=== PATIENT | female | born 1935 | race Caucasian/White ===

== ENCOUNTER 2017-11-23 07:48 | Outpatient (CLI) | payer OTHER ==
[~2017-11-23 07:48] MED LIST: ATENOLOL100 MG; BRONCOTRON LIQ118 ML PO; CATAPRES0.2 MG; CIPRO500 MG PO; COZAAR100 MG; FLAGYL500MG PO; GILTUSS LIQUID237 M1 PO; LOPRESSOR25 MG; LOPRESSOR25 MG PO; LOSARTAN POTAS100 MG PO; PROBIOTIC ACID1 EAC2 PO
== END 2017-11-23 07:55 | disposition home or self-care (01) ==
LOC: TOM 07:48
DX: I63.341 Cerebral infarction due to thrombosis of right cerebellar artery (principal)

== ENCOUNTER → 2018-04-22 | Emergency (ER) | payer OTHER ==
[~2018-04-22] VITALS: Ht 160 cm; Wt 68.0 kg
[~2018-04-22] MED LIST changes: +CRESTOR20 MG; +PROCARDIA XL90 MG
== END | disposition home or self-care (01) ==
LOC: ER 15:17 → CPU-OBS 15:21
DX: R07.89 Other chest pain (principal)

== ENCOUNTER 2018-08-09 10:20 | Outpatient (CLI) | payer OTHER | END 2018-08-09 10:27 | disposition home or self-care (01) | LOC: RAD 10:20 | DX: J45.998 Other asthma (principal) ==

== ENCOUNTER 2018-08-26 18:05 | Emergency (ER) | payer OTHER ==
[~2018-08-26] VITALS: Ht 160 cm; Wt 68.5 kg
== END 2018-08-26 20:43 | disposition home or self-care (01) ==
LOC: ER 18:05
DX: R20.0 Anesthesia of skin (principal)

== ENCOUNTER 2018-09-20 08:15 | Outpatient (CLI) | payer OTHER | END 2018-09-20 08:22 | disposition home or self-care (01) | LOC: MRI 08:15 | DX: I63.89 Other cerebral infarction (principal) | CPT/HCPCS: 70553; A9579 ==

== ENCOUNTER 2018-09-20 09:10 | Outpatient (CLI) | payer OTHER | END 2018-09-20 09:17 | disposition home or self-care (01) | LOC: NUCLEAR 09:10 | DX: I67.89 Other cerebrovascular disease (principal) ==

== ENCOUNTER 2020-06-04 12:15 | Outpatient (CLI) | payer OTHER | END 2020-06-04 12:17 | disposition home or self-care (01) | LOC: RAD 12:15 | PROVIDERS: ATTEND Specialist | DX: M17.0 Bilateral primary osteoarthritis of knee (principal) ==

== ENCOUNTER 2021-03-03 12:38 | Outpatient (CLI) | payer OTHER | END 2021-03-03 12:45 | disposition home or self-care (01) | LOC: RAD 12:38 | PROVIDERS: ATTEND Specialist | DX: J45.998 Other asthma (principal) ==

== ENCOUNTER 2021-12-24 10:49 | Outpatient (CLI) | payer OTHER | END 2021-12-24 10:59 | disposition home or self-care (01) | LOC: RAD 10:49 | PROVIDERS: ATTEND Specialist | DX: J45.998 Other asthma (principal) ==

== ENCOUNTER 2022-01-16 16:02 | Emergency (ER) | payer OTHER ==
[~2022-01-16] VITALS: Ht 160 cm; Wt 68.0 kg
== END 2022-01-16 19:10 | disposition home or self-care (01) ==
LOC: ER 16:02
DX: M54.2 Cervicalgia (principal)

== ENCOUNTER 2023-01-24 13:10 | Outpatient (CLI) | payer OTHER | END 2023-01-24 13:16 | disposition home or self-care (01) | LOC: RAD 13:10 | PROVIDERS: ATTEND Specialist | DX: J45.991 Cough variant asthma (principal) ==

== ENCOUNTER 2023-02-10 11:52 | Outpatient (CLI) | payer OTHER | END 2023-02-10 11:56 | disposition home or self-care (01) | LOC: RAD 11:52 | PROVIDERS: ATTEND Physical Medicine & Rehabilitation | DX: M54.2 Cervicalgia (principal) ==

== ENCOUNTER 2023-08-27 13:40 | Emergency (ER) | payer OTHER ==
[~2023-08-27] VITALS: Ht 160 cm; Wt 49.9 kg
== END 2023-08-27 18:20 | disposition home or self-care (01) ==
LOC: ER 13:40
DX: M54.2 Cervicalgia (principal)
CPT/HCPCS: 72040; 96372; 99283; J1885

== ENCOUNTER 2023-10-31 13:55 | Outpatient (CLI) | payer OTHER | END 2023-10-31 14:10 | disposition home or self-care (01) | LOC: MRI 13:55 | PROVIDERS: ATTEND Neuromusculoskeletal Medicine & OMM | DX: I72.9 Aneurysm of unspecified site (principal); I65.1 Occlusion and stenosis of basilar artery; I65.09 Occlusion and stenosis of unspecified vertebral artery; I65.29 Occlusion and stenosis of unspecified carotid artery; Q28.2 Arteriovenous malformation of cerebral vessels | CPT/HCPCS: 70544 ==

== ENCOUNTER 2023-11-22 09:44 | Outpatient (CLI) | payer OTHER | END 2023-11-22 09:54 | disposition home or self-care (01) | LOC: MRI 09:44 | PROVIDERS: ATTEND Neuromusculoskeletal Medicine & OMM | DX: F09 Unspecified mental disorder due to known physiological condition (principal); F03.90 Unspecified dementia, unspecified severity, without behavioral disturbance, psychotic disturbance, mood disturbance, and anxiety | CPT/HCPCS: 70551 ==

== ENCOUNTER 2024-01-12 09:09 | Outpatient (CLI) | payer OTHER | END 2024-01-12 09:14 | disposition home or self-care (01) | LOC: RAD 09:09 | PROVIDERS: ATTEND Specialist | DX: J45.998 Other asthma (principal) ==

== ENCOUNTER 2024-09-30 19:25 | Emergency (ER) | payer OTHER ==
[~2024-09-30] VITALS: Ht 160 cm; Wt 61.2 kg
[2024-09-30] MEDS ORDERED: TRAZODONE HCL150 MG (19:43)
[2024-09-30] MEDS ORDERED: EXELON1 EACH (19:43)
[2024-09-30] MEDS ORDERED: GEODON20 MG (19:43)
[2024-09-30] MEDS ORDERED: hydrOXYzine PAMOATE 25 MG CAPSULE PO ONE (20:30)
[2024-09-30 20:55] LABS: HEMATOCRIT 33.6 % (36.0-45.00); HEMOGLOBIN 11.9 g/dL (12.0-15.00); MEAN CELL VOLUME 84.2 fL (80.00-100.00); MEAN CORPUSCULAR HEMOGLOBIN 29.8 pg (27.00-32.0); MEAN CORPUSCULAR HGB CONC 35.4 g/dl (32.0-36.0); PLATELET COUNT 340 K/uL (150-450); RED BLOOD COUNT 3.99 M/uL (4.00-6.00); RED CELL DISTRIBUTION WIDTH 14.9 % (11.5-14.5)
[2024-09-30 21:33] LABS: ALBUMIN 3.4 gm/dL (3.4-5.0); BILIRUBIN TOTAL 0.27 mg/dL (0.3-1.2); CALCIUM 9.5 mg/dL (8.5-10.1); CREATININE SERUM 1.07 mg/dL (0.55-1.02); GFR 48.39; GLOBULINA 3.7 G/DL (2.4-3.5); POTASSIUM 3.14 mEq/L (3.5-5.1); TOTAL PROTEIN 7.1 gm/dL (6.4-8.2)
[2024-09-30] MEDS ORDERED: LORazepam 0.5 MG TABLET PO ONE (23:15)
[2024-10-01] MEDS ORDERED: ZIPRASIDONE HCL20 MG PO (13:37)
[2024-10-01] MEDS ORDERED: RIVASTIGMINE1 EAC1 TD (13:38)
[2024-10-01] MEDS ORDERED: CRESTOR40 MG PO (13:38)
[2024-10-01] MEDS ORDERED: MEGESTROL ACETA40 MG PO (13:38)
[2024-10-01] MEDS ORDERED: TOPROL XL100 M1 (13:38)
== END 2024-09-30 23:21 | disposition home or self-care (01) ==
LOC: ER 19:25
PROVIDERS: General Practice
DX: S00.11XA Contusion of right eyelid and periocular area, initial encounter (principal); W18.39XA Other fall on same level, initial encounter; Y93.89 Activity, other specified; Y92.018 Other place in single-family (private) house as the place of occurrence of the external cause; G30.8 Other Alzheimer's disease; F02.80 Dementia in other diseases classified elsewhere, unspecified severity, without behavioral disturbance, psychotic disturbance, mood disturbance, and anxiety; I10 Essential (primary) hypertension; E11.9 Type 2 diabetes mellitus without complications

== ENCOUNTER 2024-10-01 13:35 | Inpatient (IN) | payer OTHER ==
[~2024-10-01] VITALS: Ht 167.6 cm; Wt 65.3 kg
[~2024-10-01 13:35] MED LIST changes: +EXELON1 EACH; +GEODON20 MG; +TRAZODONE HCL150 MG
[2024-10-01] MEDS ORDERED: ZIPRASIDONE HCL20 MG PO (13:37)
[2024-10-01] MEDS ORDERED: TOPROL XL100 M1 (13:38)
[2024-10-01] MEDS ORDERED: RIVASTIGMINE1 EAC1 TD (13:38)
[2024-10-01] MEDS ORDERED: MEGESTROL ACETA40 MG PO (13:38)
[2024-10-01] MEDS ORDERED: CRESTOR40 MG PO (13:38)
[2024-10-01] MEDS ORDERED: FAMOtidine 10 MG/ML (4ML VIAL) IV STA (15:35)
[2024-10-01 16:10] LABS: HEMATOCRIT 34.9 % (36.0-45.00); HEMOGLOBIN 12.1 g/dL (12.0-15.00); MEAN CELL VOLUME 85.4 fL (80.00-100.00); MEAN CORPUSCULAR HEMOGLOBIN 29.5 pg (27.00-32.0); MEAN CORPUSCULAR HGB CONC 34.6 g/dl (32.0-36.0); PLATELET COUNT 349 K/uL (150-450); RED BLOOD COUNT 4.09 M/uL (4.00-6.00); RED CELL DISTRIBUTION WIDTH 14.9 % (11.5-14.5)
[2024-10-01 16:18] LABS: PH,URINE 6.5 (5.0-8.0); URINE APPEARANCE Clear; URINE BILIRRUBIN Negative (NEGATIVE); URINE BLOOD Moderate; URINE COLOR Yellow; URINE GLUCOSE Negative (NEGATIVE); URINE KETONE Negative (NEGATIVE); URINE LEUKOCYTE Negative; URINE NITRATE Negative
[2024-10-01 16:23] LABS: URINE BACTERIA 96.9 uL (0.0-1933); URINE EPITHELIAL CELLS 19.1 uL (0.0-38.8); URINE RBC 20.4 uL (0.0-20.8); URINE WBC 13.9 uL (0.0-23.2)
[2024-10-01 16:38] LABS: ALBUMIN 3.6 gm/dL (3.4-5.0); BILIRUBIN TOTAL 0.38 mg/dL (0.3-1.2); BILIRUBIN,CONJUGATED 0.13 mg/dL (0.0-0.2); BILIRUBIN,UNCONJUGATED 0.25 mg/dL (0.0-0.6); CALCIUM 9.1 mg/dL (8.5-10.1); CREATININE SERUM 0.99 mg/dL (0.55-1.02); GFR 52.93; TOTAL PROTEIN 7.5 gm/dL (6.4-8.2)
[2024-10-01 16:46] LABS: POTASSIUM 2.93 mEq/L (3.5-5.1)
[2024-10-01 16:52] LABS: URINE CAST 1.06 uL (0.0-1.40); URINE PROTEIN 100 (NEGATIVE)
[2024-10-01] MEDS ORDERED: POTASSIUM CHLORIDE/D5-0.9%NACL 40 MEQ/1,000 ML PIGGYBAG IV STA (16:58)
[2024-10-01] MEDS ORDERED: RIVAROXABAN 20 MG TABLET PO STA (16:59)
[2024-10-01] MEDS ORDERED: ACETAMINOPHEN 500 MG GEL..CAP PO PRN (20:00)
[2024-10-01] MEDS ORDERED: 0.9 % SODIUM CHLORIDE 1,000 ML IV SCH (20:00)
[2024-10-01] MEDS ORDERED: POLYETHYLENE GLYCOL 3350 17 GM BLIST.PACK PO ONE (20:15)
[2024-10-01] MEDS ORDERED: TEMAZEPAM 15 MG CAPSULE PO SCH (21:00)
[2024-10-01 22:18] LABS: INR 1.16; PARTIAL THROMBOPLASTIN TIME 32.2 SECONDS (22.0-34.0); PROTHROMBIN TIME 12.5 SECONDS (9.0-11.5)
[2024-10-01 22:20] LABS: MAGNESIUM 2.4 mg/dL (1.8-2.4); PHOSPHOROUS 2.3 mg/dL (2.5-4.9)
[2024-10-01 22:57] VITALS: BP 150/77; O2SAT 97
[2024-10-02 01:10] VITALS: O2SAT 97
[2024-10-02 01:59] VITALS: BP 136/79; O2SAT 95
[2024-10-02 05:45] VITALS: O2SAT 98
[2024-10-02 08:01] VITALS: BP 118/88; O2SAT 97
[2024-10-02] MEDS ORDERED: ASPIRIN 81 MG TAB.CHEW PO SCH (09:00)
[2024-10-02] MEDS ORDERED: METOPROLOL SUCCINATE 100 MG TAB.SR.24H PO SCH (09:00)
[2024-10-02] MEDS ORDERED: ATORVASTATIN CALCIUM 40 MG TABLET PO SCH (09:00)
[2024-10-02] MEDS ORDERED: MEGESTROL ACETATE 40 MG TABLET PO SCH (09:00)
[2024-10-02] MEDS ORDERED: FAMOTIDINE/PF 20 MG in 0.9 % SODIUM CHLORIDE 8 ML IV PUSH SCH (09:00)
[2024-10-02 09:37] VITALS: O2SAT 97
[2024-10-02 14:26] VITALS: O2SAT 98
[2024-10-02] MEDS ORDERED: LORazepam 2 MG/ML VIAL IV PUSH PRN (16:30)
[2024-10-02] MEDS ORDERED: VITAMIN B COMPLEX/LYSINE 1 ML ML PO SCH (17:00)
[2024-10-02] MEDS ORDERED: HALOPERIDOL LACTATE 5 MG/ML AMPUL IM PRN (18:00)
[2024-10-03 02:54] VITALS: BP 128/66
[2024-10-03 08:59] VITALS: BP 140/90
[2024-10-03] MEDS ORDERED: MEGESTROL ACETATE 40 MG TABLET PO SCH (12:16)
[2024-10-03] MEDS ORDERED: PATIENTS OWN MEDICATION (MEDICAMENTO EN PISO) PO SCH (17:00)
[2024-10-03 17:47] VITALS: BP 151/71
[2024-10-03 22:00] VITALS: O2SAT 99
[2024-10-03 22:02] LABS: ALBUMIN 3.4 gm/dL (3.4-5.0); BILIRUBIN TOTAL 0.45 mg/dL (0.3-1.2); CALCIUM 8.9 mg/dL (8.5-10.1); CREATININE SERUM 0.65 mg/dL (0.55-1.02); GFR 86.02; GLOBULINA 3.4 G/DL (2.4-3.5); MAGNESIUM 2.3 mg/dL (1.8-2.4); POTASSIUM 3.67 mEq/L (3.5-5.1); TOTAL PROTEIN 6.8 gm/dL (6.4-8.2)
[2024-10-04] VITALS (7 sets, daily range): BP systolic 140–170; BP diastolic 74–80; O2SAT 87–99
[2024-10-04] MEDS ORDERED: PATIENTS OWN MEDICATION (MEDICAMENTO EN PISO) TOP SCH (09:00)
[2024-10-04 09:33] LABS: ALBUMIN 3.1 gm/dL (3.4-5.0); BILIRUBIN TOTAL 0.5 mg/dL (0.3-1.2); CALCIUM 8.7 mg/dL (8.5-10.1); CREATININE SERUM 0.78 mg/dL (0.55-1.02); GFR 69.7; GLOBULINA 2.9 G/DL (2.4-3.5); MAGNESIUM 2.3 mg/dL (1.8-2.4); POTASSIUM 3.19 mEq/L (3.5-5.1)
[2024-10-04] MEDS ORDERED: POTASSIUM CHLORIDE 20MEQ/100ML H2O PB IV NR (11:00)
== END 2024-10-04 21:23 | disposition home or self-care (01) | DRG 64 ==
LOC: ER 13:35 → MEDI 20:17
PROVIDERS: General Practice; ADMIT Specialist; ATTEND Specialist
PROC: BW21ZZZ Computerized Tomography (CT Scan) of Abdomen and Pelvis (ICD-10-PCS; 2024-10-01)
PROC: BW38ZZZ Magnetic Resonance Imaging (MRI) of Head (ICD-10-PCS; 2024-10-01)
PROC: B24BZZZ Ultrasonography of Heart with Aorta (ICD-10-PCS; 2024-10-01)
PROC: B348ZZZ Ultrasonography of Bilateral Internal Carotid Arteries (ICD-10-PCS; 2024-10-01)
PROC: 4A12X4Z Monitoring of Cardiac Electrical Activity, External Approach (ICD-10-PCS; principal; 2024-10-02)
DX: I63.9 Cerebral infarction, unspecified (principal); G93.41 Metabolic encephalopathy; E87.6 Hypokalemia; E78.5 Hyperlipidemia, unspecified; G30.9 Alzheimer's disease, unspecified; F02.80 Dementia in other diseases classified elsewhere, unspecified severity, without behavioral disturbance, psychotic disturbance, mood disturbance, and anxiety; S00.93XA Contusion of unspecified part of head, initial encounter; W19.XXXA Unspecified fall, initial encounter; Y93.9 Activity, unspecified; Y92.9 Unspecified place or not applicable
CPT/HCPCS: 70544

== ENCOUNTER 2025-02-15 12:25 | Emergency (ER) | payer OTHER ==
[~2025-02-15] VITALS: Ht 167.6 cm; Wt 68.0 kg
[~2025-02-15 12:25] MED LIST changes: +CRESTOR40 MG PO; +MEGESTROL ACETA40 MG PO; +RIVASTIGMINE1 EAC1 TD; +TOPROL XL100 M1; +ZIPRASIDONE HCL20 MG PO
[2025-02-15] MEDS ORDERED: LIDOCAINE HCL 1% 10ML VIAL IJ ONE (12:45)
[2025-02-15 13:56] LABS: HEMATOCRIT 32.8 % (36.0-45.00); MEAN CELL VOLUME 88.3 fL (80.00-100.00); MEAN CORPUSCULAR HEMOGLOBIN 29.6 pg (27.00-32.0); MEAN CORPUSCULAR HGB CONC 33.5 g/dl (32.0-36.0); PLATELET COUNT 300 K/uL (150-450); RED BLOOD COUNT 3.72 M/uL (4.00-6.00); RED CELL DISTRIBUTION WIDTH 14.3 % (11.5-14.5)
[2025-02-15 14:12] LABS: CALCIUM 8.7 mg/dL (8.5-10.1); CREATININE SERUM 0.52 mg/dL (0.55-1.02); GFR 111.29; POTASSIUM 3.5 mEq/L (3.5-5.1)
[2025-02-15] MEDS ORDERED: TETANUS & DIPHTHERIA TOX,ADULT 0.5 ML VIAL IM ONE (15:30)
[2025-02-15] MEDS ORDERED: LIDOCAINE HCL 1% 10ML VIAL ONE (15:33)
[2025-02-15] MEDS ORDERED: DIPHTH,PERTUSS(ACELL),TET VAC 0.5 ML SYRINGE IM ONE (15:35)
[2025-02-15] MEDS ORDERED: POVIDONE-IODINE 118 ML BOTT TOP ONE (15:39)
[2025-02-15] MEDS ORDERED: HYDROGEN PEROXIDE 473 ML BOTTLE TOP ONE (15:39)
== END 2025-02-15 17:58 | disposition home or self-care (01) ==
LOC: ER 12:25
PROVIDERS: General Practice
DX: S01.81XA Laceration without foreign body of other part of head, initial encounter (principal); W19.XXXA Unspecified fall, initial encounter; Y93.89 Activity, other specified; Y92.89 Other specified places as the place of occurrence of the external cause; Y99.8 Other external cause status
CPT/HCPCS: 12002; 36415; 70450; 72125; 90471; 90714; 96372; 99284; J1670; J3490

== ENCOUNTER 2025-03-03 12:07 | Emergency (ER) | payer OTHER ==
[~2025-03-03] VITALS: Ht 165.1 cm; Wt 68.0 kg
[2025-03-03] MEDS ORDERED: 0.9 % SODIUM CHLORIDE 1,000 ML IV SCH (12:30)
[2025-03-03 14:26] LABS: HEMATOCRIT 36.5 % (36.0-45.00); HEMOGLOBIN 12.3 g/dL (12.0-15.00); MEAN CELL VOLUME 86.7 fL (80.00-100.00); MEAN CORPUSCULAR HEMOGLOBIN 29.1 pg (27.00-32.0); MEAN CORPUSCULAR HGB CONC 33.6 g/dl (32.0-36.0); PLATELET COUNT 318 K/uL (150-450); RED BLOOD COUNT 4.22 M/uL (4.00-6.00); RED CELL DISTRIBUTION WIDTH 14.3 % (11.5-14.5)
[2025-03-03 14:35] LABS: CALCIUM 8.9 mg/dL (8.5-10.1); CREATININE SERUM 0.58 mg/dL (0.55-1.02); GFR 98.11; POTASSIUM 3.46 mEq/L (3.5-5.1)
[2025-03-03 15:07] LABS: PARTIAL THROMBOPLASTIN TIME 28.3 SECONDS (22.0-34.0); PROTHROMBIN TIME 10.9 SECONDS (9.0-11.5)
[2025-03-03] MEDS ORDERED: MORPHINE SULFATE 4 MG/ML VIAL IV ONE (16:45)
== END 2025-03-03 18:05 | disposition designated cancer center or children's hospital (05) ==
LOC: ER 12:07
PROVIDERS: Emergency Medicine
DX: S72.491A Other fracture of lower end of right femur, initial encounter for closed fracture (principal); S09.8XXA Other specified injuries of head, initial encounter; W18.39XA Other fall on same level, initial encounter; Y93.89 Activity, other specified; Y92.013 Bedroom of single-family (private) house as the place of occurrence of the external cause; S79.911A Unspecified injury of right hip, initial encounter; I10 Essential (primary) hypertension; Z85.89 Personal history of malignant neoplasm of other organs and systems
CPT/HCPCS: 36415; 70450; 73503; 73552; 96366; 99285; J7030